=== PATIENT | female | born 1995 | race Caucasian/White ===

== ENCOUNTER 2022-02-19 16:27 | Emergency (ER) | payer OTHER, SELFPAY ==
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
[2022-02-19 16:40] VITALS: BP 121/75; PULSE 113; RESP 20; TEMP 37.6; O2SAT 100
== END 2022-02-19 17:10 | disposition home or self-care (01) ==
PROVIDERS: Emergency Provider Nurse Practitioner
DX: R07.81 Pleurodynia (principal); V49.60XA Unspecified car occupant injured in collision with unspecified motor vehicles in traffic accident, initial encounter
CPT/HCPCS: 99213; G0463

== ENCOUNTER 2022-05-26 12:25 | Emergency (ER) | payer MEDICAID, SELFPAY ==
[2022-05-26 12:35] VITALS: BP 140/78; PULSE 116; RESP 20; TEMP 37.3; O2SAT 99
--- NOTE | 2022-05-26 13:37 | ED.GENADULT ---
HPI - General Adult General Chief complaint: Upper Respiratory Infection Stated complaint: Sore throat, body ache, cough Source: patient Mode of arrival: ambulatory Limitations: no limitations History of Present Illness HPI narrative: Patient presents for evaluation of sick symptoms for the last 2 days. Symptoms include sinus congestion, sore throat, body aches, fatigue, chills, productive cough of yellow sputum, and bilateral otalgia. She denies any objective fever, shortness of breath, nausea, vomiting, diarrhea. She has had decreased oral intake secondary to her symptoms. No recent sick contacts to her knowledge. She believes she had COVID just prior to when it had widespread recognition. She has received COVID vaccination. She does not smoke. No additional complaints or concerns. Related Data Home Medications Medication Instructions Recorded Confirmed alprazolam 1 mg tablet 1 mg PO TID 02/19/22 05/26/22 lamotrigine 150 mg tablet 150 mg PO BID 02/19/22 05/26/22 lisdexamfetamine 70 mg capsule 70 mg PO DAILY 02/19/22 05/26/22 (Vyvanse) olanzapine 15 mg tablet 15 mg PO DAILY 02/19/22 05/26/22 Allergies Allergy/AdvReac Type Severity Reaction Status Date / Time No Known Allergies Allergy Verified 05/26/22 12:37 Review of Systems Review of Systems: CONSTITUTIONAL: Reports chills and fatigue. Denies fever or sweats. EYES: Denies visual changes, redness, or discharge. ENT: Reports sinus congestion, sore throat, bilateral otalgia CARDIOVASCULAR: Denies chest pain, palpitations, or edema. RESPIRATORY: Reports productive cough of green sputum. Denies shortness of breath. GASTROINTESTINAL: Denies abdominal pain, nausea, vomiting, or diarrhea. GENITOURINARY: Denies dysuria or hematuria. SKIN: Denies rash or itching. MUSCULOSKELETAL: Reports generalized body aches. NEUROLOGIC: Denies headache, numbness, dizziness, or weakness. PSYCHIATRIC: Denies anxiety or depression. [facility] Past Medical History Medical History Anxiety Surgical History Surgical History No pertinent past surgical history Family History Family History Mother Family history non-contributory Social History Social History (Updated 05/26/22 @ 13:44 by Mich Zepeda [facility], ) Smoking status: Never smoker Substance use: never Gender identity (if verbalized by the patient): Female Spiritual care concerns: No Exam Narrative: GENERAL: Well-appearing, well-nourished, and in no acute distress. HEAD: Normocephalic, atraumatic. EYES: PERRLA and EOMI. ENT: Nares clear, no rhinorrhea or epistaxis. Mucous membranes moist. Oropharynx without tonsillar hypertrophy exudate or other lesions. Bilateral TMs pearly martinez nonbulging NECK: Supple. No adenopathy or masses. No carotid bruits or JVD CHEST: Clear to auscultation. No respiratory distress. No wheezes rales or rhonchi HEART: Rate 104. Regular rhythm. No murmur heard. Normal peripheral pulses. ABDOMEN: Soft, nontender, nondistended, normal active bowel sounds. EXTREMITIES: Normal range of motion. No edema. SKIN: Warm, dry, no rash. NEURO: No focal deficits. Alert and oriented x3. PSYCH: Normal mood and affect. Course Course Emergency Course: This is a 27-year-old female who presented for evaluation of sick symptoms. COVID was positive. Discussed risk versus benefits of paxlovid. She would like to be treated with paxlovid. Advised to hold alprazolam for now due to potential for interaction with paxlovid. She was mildly tachycardic with rate 104 on my exam. She has no SOB or CP to suggest PE. Increase hydration. Follow up outpatient for further evaluation and treatment and return for worsening symptoms. Level of Care: Express Care Visit Vital Signs Vital signs: Vital Signs Temperature 37.3 C
== END 2022-05-26 13:14 | disposition home or self-care (01) ==
PROVIDERS: Emergency Provider Nurse Practitioner
DX: U07.1 COVID-19 (principal); F41.9 Anxiety disorder, unspecified
CPT/HCPCS: 87426; 99213; C9803; G0463

== ENCOUNTER 2022-07-31 11:27 | Emergency (ER) | payer MEDICAID, SELFPAY ==
--- NOTE | 2022-07-31 11:36 | ED.NAVMDI ---
HPI - Nausea/Vomiting/Diarrhea General Chief complaint: Nausea/Vomiting/Diarrhea Stated complaint: Diarrhea/Fatigue Time Seen by Provider: 07/31/22 11:36 Source: patient and RN notes reviewed History of Present Illness HPI Narrative: Patient is a 27-year-old female who presents the urgent care with complaints of loose stools and extreme fatigue since last night. Patient states she started a new job yesterday and symptoms started after she got off work. Patient denies of any known fevers. Denies any upper respiratory complaints. States that she has diffuse abdominal discomfort. Denies any nausea or vomiting. Denies of any urinary symptoms. Denies of any ill exposures. Patient had a COVID on May 26 and has not retested herself since then. No other acute complaints. No acute distress noted. Patient aware of the plan of care. Some parts of this dictation were generated by voice recognition software and may contain typographical and/or grammatical inaccuracies. Related Data Home Medications Medication Instructions Recorded Confirmed alprazolam 1 mg tablet 1 mg PO TID 02/19/22 05/26/22 lamotrigine 150 mg tablet 150 mg PO BID 02/19/22 05/26/22 lisdexamfetamine 70 mg capsule 70 mg PO DAILY 02/19/22 05/26/22 (Vyvanse) olanzapine 15 mg tablet 15 mg PO DAILY 02/19/22 05/26/22 Allergies Allergy/AdvReac Type Severity Reaction Status Date / Time No Known Allergies Allergy Verified 07/31/22 11:41 Review of Systems Review of Systems: CONSTITUTIONAL: Denies fever, chills, or sweats. Reports of extreme fatigue EYES: Denies visual changes, redness, or discharge. ENT: Denies rhinorrhea, congestion, sore throat, or otalgia. CARDIOVASCULAR: Denies chest pain, palpitations, or edema. RESPIRATORY: Denies cough or dyspnea. GASTROINTESTINAL: Reports abdominal discomfort with loose stools GENITOURINARY: Denies dysuria or hematuria. SKIN: Denies rash or itching. MUSCULOSKELETAL: Denies back pain, joint pain, or myalgia. NEUROLOGIC: Denies headache, numbness, or weakness. All other systems reviewed are negative, except as documented in HPI. [facility] Past Medical History Medical History (Updated 07/31/22 @ 12:01 by BRENNA Winters) Anxiety Surgical History Surgical History No pertinent past surgical history Family History Family History Mother Family history non-contributory Social History Social History (Updated 05/26/22 @ 13:44 by BRENNA Jones, ) Smoking status: Never smoker Substance use: never Gender identity (if verbalized by the patient): Female Spiritual care concerns: No Comments At the time of my signature, I reviewed and agree with the nursing past medical, surgical, social, and family history. There is no relevant family history pertinent to the patient complaint. Exam Narrative: GENERAL: This is a well-nourished, well-developed patient, in no apparent distress. HEAD: normocephalic, atraumatic. EYES: PERRL. Bilateral injected sclera with clear drainage Vision is grossly intact. EARS: External ears normal, auditory canals clear and without drainage, TMs normal without perforation. Hearing grossly intact. NOSE: External nose normal with no obvious nasal discharge, nares without redness, no rhinorrhea. THROAT: Mucous membranes moist, posterior pharynx clear. NECK: Neck supple CARDIOVASCULAR: Regular rate and rhythm without murmurs, gallops, or rubs. RESPIRATORY: Clear to auscultation. Breath sounds equal bilaterally. No wheezes, rales, or rhonchi. GASTROINTESTINAL: Abdomen soft, mild diffuse tenderness, nondistended. Bowel sounds are active. No guarding. SKIN: warm, intact with no suspicious lesions or rash, good texture and turgor. NEURO: awake, alert, and oriented to person, place and time. There were no obvious focal neurologic abnormalities. EXTREMITIES: No
[2022-07-31 11:37] VITALS: BP 132/72; PULSE 101; RESP 16; TEMP 37.4; O2SAT 100
== END 2022-07-31 12:11 | disposition home or self-care (01) ==
PROVIDERS: Emergency Provider Nurse Practitioner Family
DX: R53.83 Other fatigue (principal); F41.9 Anxiety disorder, unspecified; Z86.16 Personal history of COVID-19
CPT/HCPCS: 87081; 87804; 87880; 99213; G0463

== ENCOUNTER 2022-08-21 18:57 | Emergency (ER) | payer MEDICAID, SELFPAY ==
[2022-08-21 19:01] VITALS: BP 131/84; PULSE 86; RESP 20; TEMP 37.4; O2SAT 100
--- NOTE | 2022-08-21 19:55 | ED.URI ---
HPI - URI/Sore Throat General Chief Complaint: Upper Respiratory Infection Stated Complaint: cold head congestion Time Seen by Provider: 08/21/22 19:15 Source: patient, RN notes reviewed and old records reviewed Mode of arrival: ambulatory Limitations: no limitations History of Present Illness HPI Narrative: 27 YEAR OLD FEMALE WHO PRESENTS TO [facility] with complaints of headache, sinus pain and drainage, scratchy throat, some body aches for the past 3 days.Patient reports that she is fatigued and feels weak, has been taking DayQuil for her symptoms. Patient reports that she had Covid 2-3 weeks ago and took Paxlovid.Patient reports that she has been Covid vaccinated., no flu shot. MD elicited complaint: cough and sore throat Pertinent past history: other (COVID 2-3 weeks ago) Onset (ago): day(s) Pain scale (0-10): 7 Description of mucous: yellow Able to tolerate fluids by mouth: Yes Treatments prior to arrival: cold medicine Related Data Home Medications Medication Instructions Recorded Confirmed alprazolam 1 mg tablet 1 mg PO TID 02/19/22 07/31/22 lamotrigine 150 mg tablet 150 mg PO BID 02/19/22 07/31/22 lisdexamfetamine 70 mg capsule 70 mg PO DAILY 02/19/22 07/31/22 (Vyvanse) olanzapine 15 mg tablet 15 mg PO DAILY 02/19/22 07/31/22 Allergies Allergy/AdvReac Type Severity Reaction Status Date / Time No Known Allergies Allergy Verified 08/21/22 19:10 Review of Systems Review of Systems: CONSTITUTIONAL: Reports malaise, chills, sweats, or fever. EYES: Denies visual changes, redness, or discharge. ENT: Reports rhinorrhea, congestion, sinus pain,no otalgia and scratchy sore throat. CARDIOVASCULAR: Denies chest pain, palpitations, or edema. RESPIRATORY: Reports cough which is worse at night, Denies dyspnea. GASTROINTESTINAL: Denies abdominal pain, nausea, vomiting, diarrhea SKIN: Denies rash or itching. MUSCULOSKELETAL: Reports myalgia. NEUROLOGIC:reports headache. All systems reviewed & are unremarkable except as noted in HPI and below PMFSH Past Medical History Medical History (Updated 08/22/22 @ 00:00 by Jessica Justice) Anxiety Surgical History Surgical History No pertinent past surgical history Family History Family History Mother Family history non-contributory Social History Social History (Updated 05/26/22 @ 13:44 by Mich Zepeda [facility], ) Smoking status: Never smoker Substance use: never Gender identity (if verbalized by the patient): Female Spiritual care concerns: No Comments At time of signature, agree with nursing past medical, surgical, social and family history. There is no relevant family history pertinent to the presenting complaint Exam Narrative: GENERAL: Well-appearing, well-nourished, and in no acute distress. HEAD: Normocephalic EYES: PERRLA, conjunctivae clear ENT: Nares clear, turbinates edematous and erythematous, yellow discharge. Mucous membranes moist. TM pearly martinez with dull light reflex bilaterally; no tragal tenderness. Oropharynx erythematous without lesions. Tonsils not enlarged and without exudate, no drooling, no hoarseness, no trismus, uvula midline. NECK: Supple. No lymphadenopathy CHEST: Clear to auscultation, breath sounds equal. No wheezing, rhonchi, rales, or stridor. No respiratory distress, speaks in full sentences.cough noted HEART: Regular rate and rhythm. No murmur heard. SKIN: Warm, dry, no rash. NEURO: Alert and oriented x3. PSYCH: Normal mood and affect Course Course Emergency Course: Patient is aware of diagnosis, understands and agrees to treatment plan.? Anticipatory guidance given.? Patient agrees to follow-up as directed and is aware of reasons to seek care at the emergency department. Portions of this record may have been created with voice recognition software Level
== END 2022-08-21 20:05 | disposition home or self-care (01) ==
PROVIDERS: Emergency Provider Registered Nurse
DX: J32.9 Chronic sinusitis, unspecified (principal); F41.9 Anxiety disorder, unspecified
CPT/HCPCS: 87804; 99213; G0463